=== PATIENT | male | born 2000 | race African-American/Black ===

== ENCOUNTER 2021-11-24 20:47 | Emergency (ER) | payer MEDICAID ==
[~2021-11-24] VITALS: Ht 177.8 cm; Wt 114.0 kg
[2021-11-24] MEDS ORDERED: ONDANSETRON 4MG ODT PO ONE (21:15)
[2021-11-24] MEDS ORDERED: MORPHINE SULFATE 4 MG/ML CPJ (NOT FOR IM USE) IV ONE (21:30)
[2021-11-24 22:05] LABS: HEMATOCRIT. 48.5 % (42.0-52.0); HEMOGLOBIN. 15.8 g/dL (14.0-18.0); MEAN CORPUSCULAR HEMOGLOBIN 26.7 pg (28.0-32.0); MEAN CORPUSCULAR VOLUME 81.8 fL (80.0-94.0); MEAN PLATELET VOLUME 9.8 fl (7.4-10.4); PLATELET 279 x1000/uL (130-400); RED BLOOD CELL COUNT 5.92 mill/uL (4.7-6.1); RED CELL DISTRIBUTION WIDTH 13.6 % (11.6-14.6)
[2021-11-24 22:12] LABS: CHLORIDE 112 mEq/L (98-107)
[2021-11-24 22:16] LABS: ETHANOL BLOOD < 10 mg/dL
[2021-11-24 22:46] LABS: PLATELET ESTIMATE NORMAL
[2021-11-25 00:30] VITALS: BP 138/84
== END 2021-11-25 00:57 | disposition home or self-care (01) ==
LOC: ER 20:47
DX: R10.9 Unspecified abdominal pain (principal); F12.10 Cannabis abuse, uncomplicated; Z87.891 Personal history of nicotine dependence
CPT/HCPCS: 36415; 74176; 80053; 80320; 83690; 85025; 99284; J2270; Q0162; G0480

== ENCOUNTER 2022-08-08 07:10 | Emergency (ER) | payer MEDICAID, OTHER ==
[~2022-08-08] VITALS: Ht 177.8 cm; Wt 120.0 kg
[2022-08-08] MEDS ORDERED: PENICILLIN G BENZATHINE 2,400,000 UNITS/4ML SYR IM ONE (08:15)
[2022-08-08] MEDS ORDERED: IBUPROFEN 600MG TABLET PO ONE (08:15)
[2022-08-08] MEDS ORDERED: IBUP-2029 MT (08:19)
[2022-08-08 08:40] VITALS: BP 138/97
== END 2022-08-08 08:53 | disposition home or self-care (01) ==
LOC: ER 07:10
DX: N48.5 Ulcer of penis (principal); Z20.2 Contact with and (suspected) exposure to infections with a predominantly sexual mode of transmission
CPT/HCPCS: 96372; 99283; J0561

== ENCOUNTER 2024-08-06 21:50 | Emergency (ER) | payer MEDICAID, OTHER ==
[~2024-08-06] VITALS: Ht 177.8 cm; Wt 114.0 kg
[~2024-08-06 21:50] MED LIST: IBUP-2029 MT
[2024-08-06 22:02] VITALS: BP 164/113; PULSE 88; TEMP 98.4; O2SAT 100
[2024-08-06] MEDS: CEFTRIAXONE SODIUM 500MG VIAL IM ONE (22:59)
[2024-08-06] MEDS ORDERED: DOXY100C5 MT (23:04)
[2024-08-06 23:15] LABS: CLARITY URINE CLEAR (CLEAR); COLOR URINE YELLOW (YELLOW); GLUCOSE URINE NEGATIVE (NEGATIVE); KETONES URINE NEGATIVE (NEGATIVE); LEUKOCYTE ESTERASE URINE NEGATIVE (NEGATIVE); NITRITE URINE NEGATIVE (NEGATIVE); OCCULT BLOOD URINE NEGATIVE (NEGATIVE); PROTEIN URINE NEGATIVE (NEGATIVE); SPECIFIC GRAVITY URINE 1.013 (1.005-1.030)
[2024-08-06 23:20] VITALS: RESP 16
[2024-08-09 04:09] LABS: CHLAMYDIA TRACHOMATIS NAA Negative (Negative); NEISSERIA GONORRHOEAE NAA Negative (Negative)
== END 2024-08-06 23:39 | disposition home or self-care (01) ==
LOC: ER 21:50
DX: R30.0 Dysuria (principal); Z71.1 Person with feared health complaint in whom no diagnosis is made
CPT/HCPCS: 99283; 87491; 87591; 81003; 96372; J0696

== ENCOUNTER 2025-02-03 13:58 | Emergency (ER) | payer SELFPAY ==
[~2025-02-03] VITALS: Ht 180.3 cm; Wt 143.0 kg
[~2025-02-03 13:58] MED LIST changes: +DOXY100C5 MT
[2025-02-03 14:00] VITALS: TEMP 36.9; O2SAT 97
[2025-02-03 14:31] LABS: BASOPHILS % 0.2 % (0.0-2.0); EOSINOPHILS % 0.1 % (0.0-5.0); HEMATOCRIT. 45.9 % (42.0-52.0); HEMOGLOBIN. 15.1 g/dL (14.0-18.0); LYMPHOCYTES % 13.4 % (20.0-50.0); MEAN CORPUSCULAR HEMOGLOBIN 28.1 pg (28.0-32.0); MEAN CORPUSCULAR HGB CONC 32.8 g/dL (31.0-37.0); MEAN CORPUSCULAR VOLUME 85.6 fL (80.0-94.0); MEAN PLATELET VOLUME 9.5 fl (7.4-10.4); MONOCYTES % 3.8 % (2.0-8.0); NEUTROPHILS % 82.5 % (40.0-76.0); PLATELET 247 x1000/uL (130-400); RED BLOOD CELL COUNT 5.36 mill/uL (4.7-6.1); RED CELL DISTRIBUTION WIDTH 13.6 % (11.6-14.6); WHITE BLOOD COUNT 6.8 x1000/uL (4.5-11.0)
[2025-02-03 14:42] LABS: CHLORIDE 109 mEq/L (98-107); POTASSIUM 4.1 mEq/L (3.5-5.1); SODIUM 144 mEq/L (136-145)
[2025-02-03 14:43] LABS: CARBON DIOXIDE 28 mEq/L (21-32)
[2025-02-03 14:44] LABS: INR 0.9; PROTHROMBIN TIME 9.7 sec (9.6-11.0)
[2025-02-03 14:49] LABS: ETHANOL BLOOD < 10 mg/dL (<10); GLUCOSE 103 mg/dL (70-105); UREA NITROGEN BLOOD 9 mg/dL (9-23)
[2025-02-03 14:50] LABS: ALANINE AMINOTRANSFERASE 21 IU/L (10-49); ALBUMIN 4.4 g/dL (3.2-4.8); ASPARTATE AMINOTRANSFERASE 28 IU/L (<34)
[2025-02-03 14:51] LABS: BILIRUBIN DIRECT 0.2 mg/dL (<=3.0); BILIRUBIN TOTAL 0.6 mg/dL (0.1-1.0); PROTEIN TOTAL 7.5 g/dL (6.0-8.3)
[2025-02-03] MEDS: ONDANSETRON HCL 4MG/2ML INJ IV STA (14:51)
[2025-02-03] MEDS: KETOROLAC 30MG/ML VIAL IV STA (14:51)
[2025-02-03] MEDS: HALOPERIDOL LACTATE 5MG/ML VIAL IM ONE (16:22)
[2025-02-03 18:46] VITALS: BP 149/90; PULSE 89; RESP 18; O2SAT 98
== END 2025-02-03 18:48 | disposition home or self-care (01) ==
LOC: ER 13:58
DX: R10.9 Unspecified abdominal pain (principal); F10.90 Alcohol use, unspecified, uncomplicated; F12.90 Cannabis use, unspecified, uncomplicated; Y90.9 Presence of alcohol in blood, level not specified
CPT/HCPCS: 80076; 80048; 80320; 83690; 85025; 85610; 36415; 74176; 96372; 96374; 99285; J1630; J1885; J2405; Z7610 ×3; A4606; G0480

== ENCOUNTER 2025-03-08 06:52 | Emergency (ER) | payer SELFPAY ==
[~2025-03-08] VITALS: Ht 177.8 cm; Wt 120.0 kg
[2025-03-08 07:00] VITALS: TEMP 36.8; O2SAT 98
[2025-03-08 08:13] LABS: HEMATOCRIT. 47.4 % (42.0-52.0); HEMOGLOBIN. 15.4 g/dL (14.0-18.0); MEAN CORPUSCULAR HEMOGLOBIN 27.5 pg (28.0-32.0); MEAN CORPUSCULAR HGB CONC 32.4 g/dL (31.0-37.0); MEAN CORPUSCULAR VOLUME 84.9 fL (80.0-94.0); MEAN PLATELET VOLUME 9.5 fl (7.4-10.4); PLATELET 268 x1000/uL (130-400); RED BLOOD CELL COUNT 5.59 mill/uL (4.7-6.1); RED CELL DISTRIBUTION WIDTH 13.8 % (11.6-14.6); WHITE BLOOD COUNT 11.3 x1000/uL (4.5-11.0)
[2025-03-08 08:14] LABS: DIFFERENTIAL COMMENT 1
[2025-03-08 08:26] LABS: CHLORIDE 108 mEq/L (98-107); POTASSIUM 4.1 mEq/L (3.5-5.1); SODIUM 143 mEq/L (136-145)
[2025-03-08 08:27] LABS: CALCIUM 9.8 mg/dL (8.7-10.4); CARBON DIOXIDE 25 mEq/L (21-32)
[2025-03-08 08:32] LABS: CREATININE 1.2 mg/dL (0.6-1.3); GLUCOSE 116 mg/dL (70-105); UREA NITROGEN BLOOD 8 mg/dL (9-23)
[2025-03-08 08:51] LABS: PLATELET ESTIMATE NORMAL
[2025-03-08] MEDS ORDERED: MORPHINE SULFATE 2 MG/ML INJ IV ONE (09:00)
[2025-03-08] MEDS: MORPHINE SULFATE 2 MG/ML INJ IV SCH (09:03)
[2025-03-08] MEDS: KETOROLAC 30MG/ML VIAL IM ONE (09:03)
[2025-03-08] MEDS: ONDANSETRON 4MG ODT PO ONE (09:03)
[2025-03-08] MEDS: MORPHINE SULFATE 4 MG/ML INJ (FOR IV/IM USE) IM ONE (09:03)
[2025-03-08] MEDS ORDERED: ONDA-239 PO (09:57)
[2025-03-08] MEDS ORDERED: DICY20TA2 MT (09:57)
[2025-03-08 10:15] VITALS: BP 152/80; PULSE 82; RESP 15; O2SAT 99
[2025-03-08 10:16] LABS: CLARITY URINE CLOUDY (CLEAR); COLOR URINE YELLOW (YELLOW); GLUCOSE URINE NEGATIVE (NEGATIVE); KETONES URINE TRACE (NEGATIVE); LEUKOCYTE ESTERASE URINE NEGATIVE (NEGATIVE); NITRITE URINE NEGATIVE (NEGATIVE); OCCULT BLOOD URINE NEGATIVE (NEGATIVE); PH URINE 5.5 (4.5-8.0); PROTEIN URINE 1+ (NEGATIVE); SPECIFIC GRAVITY URINE 1.029 (1.005-1.030)
[2025-03-08 10:39] LABS: AMORPHOUS SEDIMENT URINE 1+ /lpf; BACTERIA URINE FEW; RBC URINE 0-2 /hpf (0-2); SQUAMOUS EPITHELIAL CELL URINE RARE /lpf (RARE/1+); YEAST URINE NONE SEEN
== END 2025-03-08 10:16 | disposition home or self-care (01) ==
LOC: ER 06:52
DX: R10.84 Generalized abdominal pain (principal); F12.10 Cannabis abuse, uncomplicated; Z79.899 Other long term (current) drug therapy
CPT/HCPCS: 99284; 96374; 80048; 81003; 85025; 36415; 96372; J1885; Q0162; J2270

== ENCOUNTER 2025-05-17 12:20 | Emergency (ER) | payer OTHER ==
[~2025-05-17] VITALS: Ht 180.3 cm; Wt 117.0 kg
[~2025-05-17 12:20] MED LIST changes: +DICY20TA2 MT; +ONDA-239 PO
[2025-05-17 12:24] VITALS: O2SAT 99
[2025-05-17] MEDS: MORPHINE SULFATE 4 MG/ML INJ (FOR IV/IM USE) IV ONE (13:03)
[2025-05-17] MEDS: ONDANSETRON HCL 4MG/2ML INJ IV ONE (13:03)
[2025-05-17] MEDS: SODIUM CHLORIDE 0.9% 1,000 ML IV ONE ×2 (13:03→17:09)
[2025-05-17 13:11] LABS: BASOPHILS % 0.3 % (0.0-2.0); EOSINOPHILS % 0.3 % (0.0-5.0); HEMATOCRIT. 46.8 % (42.0-52.0); HEMOGLOBIN. 15.1 g/dL (14.0-18.0); LYMPHOCYTES % 19.0 % (20.0-50.0); MEAN PLATELET VOLUME 9.4 fl (7.4-10.4); MONOCYTES % 6.2 % (2.0-8.0); NEUTROPHILS % 74.2 % (40.0-76.0); PLATELET 305 x1000/uL (130-400); RED BLOOD CELL COUNT 5.60 mill/uL (4.7-6.1); RED CELL DISTRIBUTION WIDTH 14.1 % (11.6-14.6)
[2025-05-17 13:29] LABS: CREATININE 1.3 mg/dL (0.6-1.3)
[2025-05-17 13:30] LABS: ETHANOL BLOOD < 10 mg/dL (<10); TROPONIN I HIGH SENSITIVITY < 4 ng/L (3.0-53); UREA NITROGEN BLOOD 12 mg/dL (9-23)
[2025-05-17 13:31] LABS: ASPARTATE AMINOTRANSFERASE 51 IU/L (<34); BILIRUBIN DIRECT 0.2 mg/dL (<=3.0)
[2025-05-17 13:32] LABS: BILIRUBIN TOTAL 0.7 mg/dL (0.1-1.0); PROTEIN TOTAL 7.4 g/dL (6.0-8.3)
[2025-05-17] MEDS: IOHEXOL-300 100 ML BOTTLE ONE (14:34)
[2025-05-17] MEDS: MORPHINE SULFATE 4 MG/ML INJ (FOR IV/IM USE) IV SCH (14:58)
[2025-05-17] MEDS: HYDRALAZINE 20MG/ML VIAL IV SCH (14:58)
[2025-05-17] MEDS: KETOROLAC 30MG/ML VIAL IV SCH (14:58)
[2025-05-17 15:02] LABS: CREATININE 1.2 mg/dL (0.6-1.3); UREA NITROGEN BLOOD 11 mg/dL (9-23)
[2025-05-17] MEDS: HALOPERIDOL LACTATE 5MG/ML VIAL IM ONE (17:09)
[2025-05-17 19:35] VITALS: BP 143/94; PULSE 78; RESP 12; TEMP 36.9; O2SAT 100
[2025-05-17 20:00] LABS: CLARITY URINE CLEAR (CLEAR); COLOR URINE YELLOW (YELLOW); GLUCOSE URINE NEGATIVE (NEGATIVE); KETONES URINE 2+ (NEGATIVE); LEUKOCYTE ESTERASE URINE NEGATIVE (NEGATIVE); NITRITE URINE NEGATIVE (NEGATIVE); OCCULT BLOOD URINE NEGATIVE (NEGATIVE); PH URINE 5.5 (4.5-8.0); PROTEIN URINE NEGATIVE (NEGATIVE); SPECIFIC GRAVITY URINE 1.052 (1.005-1.030); UROBILINOGEN URINE 0.2 E.U./dL (0.2-1.0)
[2025-05-17 20:26] LABS: *AMPHETAMINES SCREEN URINE NEGATIVE (NEGATIVE); *BARBITURATES SCREEN URINE NEGATIVE (NEGATIVE); *BENZODIAZEPINES SCREEN URINE NEGATIVE (NEGATIVE); *COCAINE SCREEN URINE NEGATIVE (NEGATIVE); CANNABINOID URINE SCREEN PRESUMPTIVE POSITIVE (NEGATIVE); ECSTASY MDMA SCREEN URINE NEGATIVE (NEGATIVE); METHADONE URINE SCREEN NEGATIVE (NEGATIVE); OPIATES URINE SCREEN PRESUMPTIVE POSITIVE (NEGATIVE); PHENCYCLIDINE URINE SCREEN NEGATIVE (NEGATIVE)
== END 2025-05-17 19:56 | disposition short-term general hospital (02) ==
LOC: ER 12:20 → CMPBEDREQ 05-18 07:34
DX: R10.30 Lower abdominal pain, unspecified (principal); R11.2 Nausea with vomiting, unspecified; F12.90 Cannabis use, unspecified, uncomplicated; Z79.899 Other long term (current) drug therapy
CPT/HCPCS: 80076; 80305; 80048; 81003; 80320; 83880; 83690; 83735; 85025; 84484; 36415; 71045; 74177; 96361; 96372; 96374; 96375; 96376; 99285; Q9967; J1630; J0360; J1885; J2405; J2270; J7030; Z7610; G0480